=== PATIENT | female | born 1990 | race African-American/Black ===

== ENCOUNTER 2016-05-09 13:14 | Emergency (ER) | payer SELFPAY ==
[2016-05-09 13:36] VITALS: BP 121/90; PULSE 89; TEMP 97.6; BMI 23.8
--- NOTE | 2016-05-09 15:23 | PDOC ---
History of Present Illness - General Chief Complaint: Vaginal Bleeding Stated Complaint: VAGINAL BLEEDING Time Seen by Provider: 05/09/16 13:41 History Source: Patient Exam Limitations: No Limitations - History of Present Illness Initial Comments: CHIEF COMPLAINT: 26 y/o afebrile female with no significant PMH c/o abnormal vaginal bleeding for the past 3 days. HISTORY OF PRESENT ILLNESS: The patient's LMP was 04/22/16 and was normal. She states she normally gets her period every 30 days, however, she started spotting 3 days ago. She states she has faint brown/red blood and has to wear 1 pad per day. She denies f/c, n/v/d, CP, SOB, abd pain, back pain, hematuria, dysuria. She is worried she is because this has happened in the past although she does not believe she is . Vital signs on arrival are within normal limits. REVIEW OF SYSTEMS: GENERAL/CONSTITUTIONAL: No fever/chills. No weakness. No weight change. HEAD, EYES, EARS, NOSE AND THROAT: No change in vision. No ear pain or discharge. No sore throat. CARDIOVASCULAR: No chest pain or shortness of breath. RESPIRATORY: No cough, wheezing, or hemoptysis. GASTROINTESTINAL: No nausea, vomiting, diarrhea. GENITOURINARY: No dysuria, frequency, or change in urination. +vaginal bleeding MUSCULOSKELETAL: No joint or muscle swelling or pain. No neck or back pain. SKIN: No rash or easy bruising. NEUROLOGIC: No headache, vertigo, loss of consciousness, or loss of sensation. PHYSICAL EXAM: GENERAL: The patient is awake, alert, and fully oriented, in no acute distress. SHe is very well appearing, ambulatory, in NAD or obvious discomfort. HEAD: Normal with no signs of trauma. ENT: Pupils equal, round and reactive to light, extraocular movements intact, sclera anicteric, conjunctiva clear. Neck supple. LUNGS: Clear to auscultation bilaterally. Normal excursion. No respiratory distress or use of accessory muscles. CV: RRR, S1/S2, no MRG. Cap refill < 2 sec. ABDOMEN: Soft, non-distended, non-tender even to deep palpation, no hepatomegaly or splenomegaly, no masses. VAGINAL: No blood noted on internal vaginal exam. Manual exam reveals no adnexal or CMT. EXTREMITIES: Normal range of motion, no edema. NEUROLOGICAL: Normal speech, normal gait. CN II-XII grossly intact. PSYCH: Normal mood, normal affect. SKIN: Warm, dry, normal turgor, no rashes or lesions noted. Past History - Past Medical History Allergies/Adverse Reactions: Allergies Allergy/AdvReac Type Severity Reaction Status Date / Time No Known Allergies Allergy Verified 05/09/16 13:30 Home Medications: Ambulatory Orders No Home Medications 0 dose .ROUTE UTDICT 02/25/12 Anemia: No Asthma: No Cancer: No Cardiac Disorders: No CVA: No COPD: No CHF: No Dementia: No Diabetes: No GI Disorders: No Disorders: No HTN: No Hypercholesterolemia: No Liver Disease: No Seizures: No Thyroid Disease: No Other medical history: DENIES. - Reproductive History (#): 3 Para: 1 Therapeutic (s) & number: No Spontaneous : 1 - Psycho/Social/Smoking Cessation Hx Anxiety: No Suicidal Ideation: No Smoking Status: Yes Smoking History: Current some day smoker Have you smoked in the past 12 months: Yes Number of Cigarettes Smoked Daily: 4 Information on smoking cessation initiated: No 'Breaking Loose' booklet given: 09/19/13 Hx Alcohol Use: No Drug/Substance Use Hx: No Substance Use Type: None Hx Substance Use Treatment: No *Physical Exam - Vital Signs Last Vital Signs Temp Pulse Resp BP Pulse Ox 97.6 F 89 19 121/90 100 05/09/16 13:30 05/09/16 13:30 05/09/16 13:30 05/09/16 13:30 05/09/16 13:30 Medical Decision Making - Medical Decision Making A/P: 26 y/o afebrile female with abnormal vaginal bleeding. Plan is as follows : 1. UA/hcg UA and hcg negative. Will discharge to home with instructions to f/u with either [facility] or Dr. Terry. The patient was instructed to return to the ER with any worsening or concerning symptoms. The patient verbalizes understanding of all instructions, has no further questions and is awaiting discharge. *DC/Admit/Observation/Transfer Diagnosis at time of Disposition: Abnormal vaginal bleeding - Discharge Dispostion Disposition: HOME Condition at time of disposition: Good - Referrals Referrals: Jaleel Terry MD [Staff Physician] - - Patient Instructions Printed Discharge Instructions: DI for Vaginal Bleeding Additional Instructions: Discharge Instructions: -Follow up at [facility] or with Dr. Terry if symptoms continue -Return to the ER with any worsening or concerning symptoms
[2016-05-09 15:30] LABS: URINE APPEARANCE CLEAR; URINE BILIRUBIN NEGATIVE (NEGATIVE); URINE BLOOD NEGATIVE (NEGATIVE); URINE COLOR LTYELLOW; URINE GLUCOSE (UA) NEGATIVE (NEGATIVE); URINE KETONE NEGATIVE (NEGATIVE); URINE LEUK ESTERASE NEGATIVE (NEGATIVE); URINE NITRITE NEGATIVE (NEGATIVE); URINE PROTEIN NEGATIVE (NEGATIVE); URINE UROBILINOGEN NEGATIVE E.U./dl (0.2-1.0)
--- NOTE | 2016-05-09 16:05 | PDOC ---
*Physical Exam - Vital Signs Last Vital Signs Temp Pulse Resp BP Pulse Ox 97.6 F 89 19 121/90 100 05/09/16 13:30 05/09/16 13:30 05/09/16 13:30 05/09/16 13:30 05/09/16 13:30 ED Treatment Course - ADDITIONAL ORDERS Additional order review: Laboratory Results 05/09/16 13:05 Urine Color Ltyellow Urine Appearance Clear Urine pH 6.0 Ur Specific [place] 1.025 Urine Protein Negative Urine Glucose (UA) Negative Urine Ketones Negative Urine Blood Negative Urine Nitrite Negative Urine Bilirubin Negative Urine Urobilinogen Negative Ur Leukocyte Esterase Negative Urine HCG, Qual Negative Medical Decision Making - Medical Decision Making 05/09/16 16:04 Patient seen and evaluated with the nurse practitioner. I agree with the overall evaluation, assessment, and management with the following summary of visit: 26-year-old non female with dysfunctional uterine bleeding. Agree with management as outlined, [employer] f/u. *DC/Admit/Observation/Transfer Diagnosis at time of Disposition: Abnormal vaginal bleeding - Discharge Dispostion Disposition: HOME Condition at time of disposition: Good - Referrals Referrals: Jaleel Terry MD [Staff Physician] - - Patient Instructions Printed Discharge Instructions: DI for Vaginal Bleeding Additional Instructions: Discharge Instructions: -Follow up at [facility] or with Dr. Terry if symptoms continue -Return to the ER with any worsening or concerning symptoms - Post Discharge Activity
== END 2016-05-09 15:55 | disposition home or self-care (01) ==
LOC: JER 13:14
DX: N89.8 Other specified noninflammatory disorders of vagina (principal)
CPT/HCPCS: 81003; 84703; 87086; 87186; 99281-25

== ENCOUNTER 2017-03-10 20:19 | Emergency (ER) | payer OTHER ==
[2017-03-10 20:36] VITALS: BP 151/76; PULSE 95; TEMP 98.8; BMI 32.1
[2017-03-10 21:30] LABS: BASO % 0.2 % (0-2.0); EOS % 0.1 % (0-4.5); HEMATOCRIT 38.5 % (32.4-45.2); LYMPH % 9.4 % (8-40); MCH 29.5 pg (25.7-33.7); MCHC 33.7 g/dl (32.0-36.0); MEAN CELL VOLUME 87.4 fl (80-96); MEAN PLT VOLUME 11.9 fl (7.5-11.1); MONO % 5.2 % (3.8-10.2); NEUT % 85.1 % (42.8-82.8); PLATELET COUNT 112 K/MM3 (134-434); RDW 13.4 % (11.6-15.6); WHITE BLOOD COUNT 5.3 K/mm3 (4.0-10.0)
[2017-03-10] MEDS ORDERED: SODIUM CHLORIDE 1,000 ML IV STA (21:44)
[2017-03-10] MEDS ORDERED: FAMOTIDINE 20 MG/50 ML IVPB 20 MG/50 ML MG IVPB ONE ×2 (21:44→23:29)
[2017-03-10] MEDS ORDERED: ONDANSETRON 4 MG/2 ML VIAL IVPUSH ONE (21:44)
[2017-03-10] MEDS ORDERED: MAG HYDROX/AL HYDROX/SIMETH 30 ML UNIT-DOSE CUP PO ONE (21:44)
--- NOTE | 2017-03-10 21:44 | PDOC ---
History of Present Illness - General Chief Complaint: Pain Stated Complaint: ABD PAIN Time Seen by Provider: 03/10/17 21:18 - History of Present Illness Initial Comments: 03/10/17 22:42 The patient is a 26 year old female with no significant PMH who presents for evaluation of nausea, vomiting, diarrhea. The patient reports a 15 hour history of nausea, multiple episodes of non-bilious, non-bloody vomiting, and multiple episodes of diarrhea prompting her presentation to the ED for evaluation. The patient also notes subjective fevers as well. She notes some epigastric and LUQ abdominal pain too. She denies any sick contacts. She denies chills, chest pain, SOB, or changes with urination. Past History - Past Medical History Allergies/Adverse Reactions: Allergies Allergy/AdvReac Type Severity Reaction Status Date / Time No Known Allergies Allergy Verified 03/10/17 20:33 Home Medications: Ambulatory Orders No Home Medications 0 dose .ROUTE UTDICT 02/25/12 Ondansetron HCl [Zofran] 4 mg PO TID PRN #21 tablet 03/11/17 Anemia: No Asthma: No Cancer: No Cardiac Disorders: No CVA: No COPD: No CHF: No Dementia: No Diabetes: No GI Disorders: No Disorders: No HTN: No Hypercholesterolemia: No Liver Disease: No Seizures: No Thyroid Disease: No - Reproductive History (#): 3 Para: 1 Therapeutic (s) & number: No Spontaneous : 1 - Suicide/Smoking/Psychosocial Hx Smoking Status: Yes Smoking History: Current some day smoker Have you smoked in the past 12 months: Yes Number of Cigarettes Smoked Daily: 4 Information on smoking cessation initiated: Yes 'Breaking Loose' booklet given: 09/19/13 Hx Alcohol Use: No Drug/Substance Use Hx: No Substance Use Type: None Hx Substance Use Treatment: No Review of Systems - Review of Systems Comments:: 03/10/17 22:47 Constitutional: Subjective fevers. No chills, fatigue, malaise HEENT: No Rhinorrhea, nasal congestion, visual changes Cardiovascular: No chest pain, syncope, palpitations, lightheadedness Respiratory: No Cough, SOB, Hemoptysis, Gastrointestinal: Epigastric abdominal pain, nausea, vomiting, diarrhea. No Constipation, Melena Genitourinary: No Dysuria, Frequency, Urgency, Hesitancy, Hematuria, Flank pain Musculoskeletal: No Myalgia, arthralgia Skin: No rashes, bruising, pallor Neurologic: No Headache, Dizziness, Numbness, Weakness, or Tingling Psychiatric: No Hallucinations. No SI or HI *Physical Exam - Vital Signs Last Vital Signs Temp Pulse Resp BP Pulse Ox 98.8 F 95 H 24 151/76 99 03/10/17 20:33 03/10/17 20:33 03/10/17 20:33 03/10/17 20:33 03/10/17 20:33 - Physical Exam Comments: 03/10/17 22:48 General Appearance: Nourished. No Apparent Distress HEENT: EOMI, KATIE. No Pharyngeal Erythema, Tonsillar Exudate, Tonsillar Erythema Neck: No Cervical Lymphadenopathy Respiratory/Chest: Lungs Clear, Normal Breath Sounds. No Crackles, Rales, Rhonchi, Wheezing Cardiovascular: Regular Rhythm, Regular Rate. No Murmur, Gallops, Rubs Gastrointestinal/Abdominal: Normal Bowel Sounds, Soft. Mild epigastric tenderness to palpation. No Guarding, Rebound, Musculoskeletal: No CVA Tenderness Extremity: Normal Capillary Refill Integumentary: Normal Color, Dry, Warm Neurologic: Fully Oriented, Alert, Normal Mood/Affect, Normal Response, ED Treatment Course - LABORATORY CBC & Chemistry Diagram: 03/10/17 21:15 03/10/17 21:15 - ADDITIONAL ORDERS Additional order review: 03/10/17 21:15 RBC 4.40 D MCV 87.4 MCHC 33.7 RDW 13.4 MPV 11.9 H D Neutrophils % 85.1 H D Lymphocytes % 9.4 D Monocytes % 5.2 Eosinophils % 0.1 D Basophils % 0.2 Medical Decision Making - Medical Decision Making 03/10/17 22:50 The patient is a 26 year old female with no significant PMH who presents for evaluation of nausea, vomiting, diarrhea. Differential includes but is not limited to: Viral gastroenteritis, GERD, infectious, metabolic derangement. Given her physical exam and reported symptoms, it is likely her symptoms are due to a viral gastroenteritis. However we will send for a cbc, cmp, lipase, ua , urine preg, influenza swab, and gallbladder US to evaluate for other etiologies of her symptoms. We will treat her with iv fluids, pepcid, zofran, and mylanta. We will continue to monitor and reassess. 03/11/17 01:07 CBC, cmp, lipase, influenza were unremarkable. Gallbladder US was unremarkable as preliminarily read by ER physician pending official radiology read. The patient reports some improvement in her symptoms. Her symptoms are likely due to a viral gastroenteritis. We are comfortable discharging the patient home at this time with primary care provider follow up. We discussed the results and the plan with the patient who voiced understanding and is agreeable with the plan. *DC/Admit/Observation/Transfer Diagnosis at time of Disposition: Viral gastroenteritis - Discharge Dispostion Disposition: HOME Condition at time of disposition: Improved Admit: No - Prescriptions Prescriptions: Ondansetron HCl [Zofran] 4 mg PO TID PRN #21 tablet PRN Reason: Nausea - Referrals Referrals: Devonte Mora MD [Staff Physician] - - Patient Instructions Printed Discharge Instructions: DI for Viral Gastroenteritis -- Adult Additional Instructions: Please return to the ER if you experience concerning or worsening symptoms including worsening abdominal pain, inability to take anything by mouth, or worsening fevers. Your lab results and ultrasound were normal here in the ER. It is likely your symptoms are due to a viral gastroenteritis. You may use ibuprofen or tylenol as needed to help manage your pain at home and continue to stay well hydrated. We have sent an anti-nausea medication to your pharmacy that you can take as needed up to three times a day. Please call to schedule a follow up appointment with your primary care provider within 1 week to discuss your ER visit. - Post Discharge Activity
[2017-03-10] MEDS ORDERED: ONDANSETRON 4 MG/2 ML VIAL ONE (21:49)
[2017-03-10] MEDS ORDERED: MAG HYDROX/AL HYDROX/SIMETH 30 ML UNIT-DOSE CUP ONE (21:49)
[2017-03-10 22:04] LABS: ALBUMIN 4.4 g/dl (3.4-5.0); AMYLASE 65 U/L (25-115); ANION GAP 7 (8-16); BLOOD UREA NITROGEN 11 mg/dL (7-18); CALCIUM 9.4 mg/dL (8.5-10.1); CHLORIDE 107 mmol/L (98-107); CO2 23 mmol/L (21-32); CREATININE 0.8 mg/dL (0.55-1.02); GLUCOSE,RANDOM 87 mg/dL (74-106); LIPASE 90 U/L (73-393); POTASSIUM 3.6 mmol/L (3.5-5.1); SGOT/AST 17 U/L (15-37); SGPT/ALT 27 U/L (12-78); SODIUM 137 mmol/L (136-145)
[2017-03-10 22:07] LABS: ALK PHOS 62 U/L (45-117); BILIRUBIN,TOTAL 1.4 mg/dL (0.2-1.0); TOT PROT 8.2 g/dl (6.4-8.2)
--- NOTE | 2017-03-10 22:46 | PDOC ---
Attending Attestation - Resident Resident Name: Nimesh Salgado - ED Attending Attestation I have performed the following: I have examined & evaluated the patient, The case was reviewed & discussed with the resident, I agree w/resident's findings & plan - HPI HPI: 03/10/17 22:45 Pt comes with N/V/D - Physicial Exam PE: 03/10/17 22:45 Agree with resident exam. 03/10/17 22:55 Pt has liquidy bowel sounds. She has no tenderness and no rebound and guarding. 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 Pt received her flu vaccine this year. - Medical Decision Making 03/11/17 00:55 Sono normal; labs normal except Tbili is slightly elevated. Pt's flu culture is normal. Diagnosis: nonspecific viral infection. Home with rest and symptomatic therapy.
[2017-03-10] MEDS ORDERED: ACETAMINOPHEN 1000 MG/100 ML VIAL (NON FORMULARY) IVPB ONE (23:05)
[2017-03-10] MEDS ORDERED: ACETAMINOPHEN INJECTION 100 ML IVPB ONE (23:29)
== END 2017-03-11 01:30 | disposition home or self-care (01) ==
LOC: JER 20:19
PROC: 3E0337Z Introduction of Electrolytic and Water Balance Substance into Peripheral Vein, Percutaneous Approach (ICD-10-PCS; principal; 2017-03-10)
PROC: 3E033GC Introduction of Other Therapeutic Substance into Peripheral Vein, Percutaneous Approach (ICD-10-PCS; 2017-03-10)
PROC: 3E033GC Introduction of Other Therapeutic Substance into Peripheral Vein, Percutaneous Approach (ICD-10-PCS; 2017-03-10)
PROC: 3E033NZ Introduction of Analgesics, Hypnotics, Sedatives into Peripheral Vein, Percutaneous Approach (ICD-10-PCS; 2017-03-10)
DX: R19.7 Diarrhea, unspecified (principal); A08.4 Viral intestinal infection, unspecified; B97.89 Other viral agents as the cause of diseases classified elsewhere
CPT/HCPCS: 36415; 76705-TC; 80053; 82150; 83690; 85025; 87804; 99282-25; J0131; J7030

== ENCOUNTER 2018-07-02 14:48 | Emergency (ER) | payer OTHER ==
[2018-07-02 14:55] VITALS: BMI 22.8
--- NOTE | 2018-07-02 14:55 | PDOC ---
Rapid Medical Evaluation Time Seen by Provider: 07/02/18 14:51 Medical Evaluation: Allergies Allergy/AdvReac Type Severity Reaction Status Date / Time No Known Allergies Allergy Verified 03/10/17 20:33 07/02/18 14:51 I have performed a brief in-person evaluation of this patient. The patient presents with a chief complaint of: intractable n/v. +home preg test yesterday (7-8 per LMP). No abd pain, vag bleed or dysuria. (s/p 1 spon AB). No sig pmhx Pertinent physical exam findings:savannah uncomfortable but stable I have ordered the following:labs The patient will proceed to the ED for further evaluation. Discharge Disposition - Diagnosis Nausea and vomiting during - Referrals - Patient Instructions - Post Discharge Activity
[2018-07-02] MEDS ORDERED: METOCLOPRAMIDE HCL INJECTION 10 MG/2 ML VIAL IVPB ONE (15:12)
[2018-07-02] MEDS ORDERED: SODIUM CHLORIDE 1,000 ML IV STA (15:12)
[2018-07-02 15:40] LABS: BASO % 0.4 % (0-2.0); EOS % 0.4 % (0-4.5); HEMATOCRIT 37.1 % (32.4-45.2); HEMOGLOBIN 12.5 GM/dL (10.7-15.3); LYMPH % 25.7 % (8-40); MCH 30.1 pg (25.7-33.7); MCHC 33.7 g/dl (32.0-36.0); MEAN CELL VOLUME 89.3 fl (80-96); MEAN PLT VOLUME 10.5 fl (7.5-11.1); MONO % 5.7 % (3.8-10.2); NEUT % 67.8 % (42.8-82.8); PLATELET COUNT 129 K/MM3 (134-434); RBC 4.16 M/mm3 (3.60-5.2); RDW 13.3 % (11.6-15.6); WHITE BLOOD COUNT 6.7 K/mm3 (4.0-10.0)
[2018-07-02 16:03] LABS: ALBUMIN 3.8 g/dl (3.4-5.0); ALK PHOS 48 U/L (45-117); ANION GAP 10 MMOL/L (8-16); BILIRUBIN,TOTAL 0.7 mg/dL (0.2-1); BLOOD UREA NITROGEN 9 mg/dL (7-18); CALCIUM 9.2 mg/dL (8.5-10.1); CHLORIDE 105 mmol/L (98-107); CO2 22 mmol/L (21-32); CREATININE 0.6 mg/dL (0.55-1.3); GLUCOSE,RANDOM 72 mg/dL (74-106); POTASSIUM 3.9 mmol/L (3.5-5.1); SGOT/AST 23 U/L (15-37); SGPT/ALT 23 U/L (13-61); SODIUM 137 mmol/L (136-145); TOT PROT 7.7 g/dl (6.4-8.2)
--- NOTE | 2018-07-02 16:58 | PDOC ---
History of Present Illness - General Chief Complaint: Labor Assessment Stated Complaint: NAUSEA/VOMITING Time Seen by Provider: 07/02/18 14:51 - History of Present Illness Initial Comments: The pt is a 28F at approximately 7-8 weeks by LMP who presents for evaluation of intractable N/V at home for approximately 1 week. She reports 5-6 NBNB episodes of vomiting yesterday and today. She denies fevers/chills, abdominal pain, falls/LOC, vaginal bleeding/discharge, dysuria/hematuria, diarrhea, or blood in her stool. She has not established care during this yet (she found out 2 days ago via home test). PCP: Dr. David Franco Previous OB: @ [address] 07/02/18 17:19 Past History - Past Medical History Allergies/Adverse Reactions: Allergies Allergy/AdvReac Type Severity Reaction Status Date / Time No Known Allergies Allergy Verified 03/10/17 20:33 Home Medications: Ambulatory Orders No Home Medications 0 dose .ROUTE UTDICT 02/25/12 Ondansetron HCl [Zofran] 4 mg PO TID PRN #21 tablet 03/11/17 Anemia: No Asthma: No Cancer: No Cardiac Disorders: No CVA: No COPD: No CHF: No Dementia: No Diabetes: No GI Disorders: No Disorders: No HTN: No Hypercholesterolemia: No Liver Disease: No Seizures: No Thyroid Disease: No - Reproductive History (#): 3 Para: 1 Therapeutic (s) & number: No Spontaneous : 1 - Suicide/Smoking/Psychosocial Hx Smoking Status: Yes Smoking History: Unknown if ever smoked Have you smoked in the past 12 months: Yes Number of Cigarettes Smoked Daily: 4 'Breaking Loose' booklet given: 09/19/13 Hx Alcohol Use: No Drug/Substance Use Hx: No Substance Use Type: None Hx Substance Use Treatment: No Review of Systems - Review of Systems Able to Perform ROS?: Yes Comments:: GENERAL/CONSTITUTIONAL: No fever or chills. No weakness HEAD, EYES, EARS, NOSE AND THROAT: No change in vision. No ear pain or discharge. No sore throat CARDIOVASCULAR: No chest pain or shortness of breath RESPIRATORY: Denies cough, hemoptysis GASTROINTESTINAL: No nausea, vomiting, diarrhea or constipation GENITOURINARY: No dysuria, frequency, or change in urination MUSCULOSKELETAL: No joint or muscle swelling or pain. No neck or back pain SKIN: No rash NEUROLOGIC: No headache, vertigo, loss of consciousness, or change in strength/ sensation ENDOCRINE: No increased thirst. No abnormal weight change HEMATOLOGIC/LYMPHATIC: No anemia, easy bleeding, or history of blood clots 07/02/18 16:55 Is the patient limited Ivorian proficient: No *Physical Exam - Vital Signs Last Vital Signs Temp Pulse Resp BP Pulse Ox 97.9 F 85 20 124/80 100 07/02/18 14:50 07/02/18 14:50 07/02/18 14:50 07/02/18 14:50 07/02/18 14:50 - Physical Exam Comments: GENERAL: Awake, alert, and oriented to person/place/time, in no acute distress HEAD: No signs of trauma, normocephalic, atraumatic EYES: PERRLA, EOMI, sclera anicteric, conjunctiva clear ENT: Hearing grossly normal, nares patent, oropharynx clear without exudates. Moist mucosa LUNGS: No distress, speaks full sentences, clear to auscultation bilaterally HEART: Regular rate and rhythm, normal S1 and S2, no murmurs appreciated, peripheral pulses normal and equal bilaterally ABDOMEN: Soft, nontender, normoactive bowel sounds. No guarding, no rebound EXTREMITIES: Normal inspection, Normal range of motion, no edema. No clubbing or cyanosis NEUROLOGICAL: Cranial nerves II through XII grossly intact. Normal speech, normal gait, no focal sensorimotor deficits SKIN: Warm, Dry 07/02/18 16:55 ED Treatment Course - LABORATORY CBC & Chemistry Diagram: 07/02/18 15:16 07/02/18 15:16 - ADDITIONAL ORDERS Additional order review: Laboratory Results 07/02/18 15:16 Sodium 137 Potassium 3.9 Chloride 105 Carbon Dioxide 22 Anion Gap 10 BUN 9 Creatinine 0.6 Creat Clearance w eGFR 117.38 Random Glucose 72 L Calcium 9.2 Total Bilirubin 0.7 AST 23 ALT 23 Alkaline Phosphatase 48 Total Protein 7.7 Albumin 3.8 07/02/18 15:16 RBC 4.16 MCV 89.3 MCHC 33.7 RDW 13.3 MPV 10.5 D Neutrophils % 67.8 D Lymphocytes % 25.7 D Monocytes % 5.7 Eosinophils % 0.4 D Basophils % 0.4 Medical Decision Making - Medical Decision Making The pt is a 28F [id number] at approximately 07/02/18 17:26 *DC/Admit/Observation/Transfer Diagnosis at time of Disposition: Nausea and vomiting during - Discharge Dispostion Disposition: HOME Condition at time of disposition: Improved Decision to Admit order: No - Referrals Referrals: Shanae Conrad MD [Staff Physician] - - Patient Instructions Printed Discharge Instructions: DI for Vomiting -- Adult Additional Instructions: You were seen in the Emergency Department for evaluation of vomiting during . You were treated with IV fluids and Reglan. A prescription was sent to your pharmacy for Reglan, take as directed. Follow up with your OBGYN or the referral provided. Review the handout provided at discharge. Return to the Emergency Department if you develop fevers/chills, chest pain, trouble breathing , abdominal pain, inability to tolerate food/drink, vaginal bleeding or discharge, or any new/concerning symptoms. Your beta-hCG was [id number] today. - Post Discharge Activity
[2018-07-02] MEDS ORDERED: METOCLOPRAMIDE HCL INJECTION 10 MG/2 ML VIAL ONE (17:34)
[2018-07-02 18:49] LABS: HCG,QUALITATIVE URINE POSITIVE
[2018-07-02 18:51] LABS: PH,URINE 5.5 (5.0-8.0); URINE APPEARANCE CLEAR; URINE BILIRUBIN NEGATIVE (NEGATIVE); URINE COLOR YELLOW; URINE GLUCOSE (UA) NEGATIVE (NEGATIVE); URINE KETONE 4+ (NEGATIVE); URINE LEUK ESTERASE NEGATIVE (NEGATIVE); URINE NITRITE NEGATIVE (NEGATIVE); URINE PROTEIN NEGATIVE (NEGATIVE); URINE UROBILINOGEN 0.2 mg/dL (0.2-1.0)
[2018-07-02 19:42] VITALS: BP 120/76; PULSE 80; TEMP 98
== END 2018-07-02 20:04 | disposition home or self-care (01) ==
LOC: JER 14:48
PROC: 3E033GC Introduction of Other Therapeutic Substance into Peripheral Vein, Percutaneous Approach (ICD-10-PCS; principal; 2018-07-02)
DX: O26.891 Other specified pregnancy related conditions, first trimester (principal); O21.0 Mild hyperemesis gravidarum; Z3A.08 8 weeks gestation of pregnancy
CPT/HCPCS: 36415; 80053; 81003; 84702; 84703; 85025; 96374; 99282-25; J7030